=== PATIENT | female | born 1990 | race Caucasian/White ===

== ENCOUNTER → 2017-12-21 | Outpatient (CLI) | payer OTHER ==
[~2017-12-21] MED LIST: ACYCLOVIR 400400 M1 PO; AZITHROMYCIN 2250 MG PO; BENADRYL25 MG PO; CEPACOL SORE T1 EAC2; IBUPROFEN 200200 M1 PO; YAZ
== END ==
LOC: M.CT 13:00
DX: G43.109 Migraine with aura, not intractable, without status migrainosus (principal)